=== PATIENT | male | born 1985 | race African-American/Black ===

== ENCOUNTER 2025-03-19 13:28 | Outpatient (CLI) | payer OTHER, SELFPAY | END 2025-03-19 13:29 | disposition home or self-care (01) | PROVIDERS: PCP Internal Medicine; Visit Provider Internal Medicine | DX: Z00.00 Encounter for general adult medical examination without abnormal findings (principal); Z13.228 Encounter for screening for other metabolic disorders; Z13.6 Encounter for screening for cardiovascular disorders | CPT/HCPCS: 80053; 80061 ==

== ENCOUNTER 2025-04-20 10:00 | Outpatient (RCR) | payer OTHER, SELFPAY ==
--- NOTE | 2025-03-25 13:25 | PT.OPE ---
PT [facility] Outpatient Eval PT [facility] Outpatient Eval Start: 03/25/25 09:34 Freq: Status: Active Protocol: Document 03/25/25 09:35 (Rec: 03/25/25 13:08 [id number]) E-signed By Angelica Reece DPT Physical Therapy Outpatient Evaluation Insurance Information Recert Due Date 06/25/25 Insurance Name Other; See Comments Insurance Information/Comments [employer] Medical Diagnosis S39.91 Unspecified injury of abdomen Groin Injury Treating Diagnosis R Hip Pain M25.551 Stiffness of R Hip M25.651 Referring MD Irving Espinoza MD Subjective Subjective Initial subjective: Joseph has been having groin pain for years but has flared up again. 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 GUILLE: He thinks it occurred during basketball 2 years ago. 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 -Hip Ext:?Right= decreased compared to left -Hip Flx:?normal, painful with AROM - HS Length: R= 79 degrees ( lacking 11); L= 83 degrees ( lacking 7) FADER: R= positive Strength LE Strength (R/L):? -Knee Ext: R: 4+/5, L: 5/5, pain noted on R -Knee Flex: R: 4+/5, L: 5/5? -Hip Abd: R: 4+/5, L: 5/5? -Hip Add: R: 3-/5, L: 4+/5, some cramping noted on L, too painful on R to provide resistance -Hip Ext: R: 4/5, L: 4+/5 -Hip Flx: R: 5/5, L: 5/5, some pain noted on R side - Hip IR: 4+/5 R, 5/5 L? - Hip ER: 4+/5 R, 5/5 L? Palpation Long head of quadricep tight/ ropey Proximal adductor and iliopsoas tightness and tenderness Posture R patella higher than L, R medial malleolus higher than L Stork test: stiffness at SI bilaterally R>L Other/Pertinent Objective Hip Labral:? -JOHNNY: - L, + R -FADIR:?- L, + R - Scour: some discomfort on L, no issues on R Muscle Length:? -Abhay Test: Rectus Fem/Psoas /TFL, + on R for pain and tightnesx -Juliet?s Test: R:+ , L:+, greater pelvic rotationR>L -Hamstrin deg from 90 on R, 7 deg from 90 on L LE Strength (R/L):? -Knee Ext: R: 4+/5, L: 5/5, pain noted on R -Knee Flex: R: 4+/5, L: 5/5? -Hip Abd: R: 4+/5, L: 5/5? -Hip Add: R: 3-/5, L: 4+/5, some cramping noted on L, too painful on R to provide resistance -Hip Ext: R: 4/5, L: 4+/5 -Hip Flx: R: 5/5, L: 5/5, some pain noted on R side - Hip IR: 4+/5 R, 5/5 L? - Hip ER: 4+/5 R, 5/5 L? Functional Test Performed & Score LEFS= will give at next visit Assessment Assessment/Impression Patient is a 39 year old male presenting to physical therapy for evaluation and treatment of groin injury. Patient presents with decreased R hip ROM, right hip weakness, impaired SI mobility, and pain . These impairments are limiting the patients ability to run, play basketball, sit for prolonged periods, and exercise. Patient appears motivated to participate in PT and presents with good prognosis to improve mobility, strength, proprioception and return to functional activities with skilled physical therapy intervention. ? Educated patient on proper form and muscle activation throughout session in order to optimize muscle function and proper body mechanics.? Primary Functional Limitations Pain; weakness; impaired flexibility/ROM; inability to run, play basketball, or sit for prolonged periods of time. Plan of Care Rehabilitation Potential Excellent Physical Therapy Goals STG's to be met in 2-3 weeks: 1.) Pt will report pain at 3/ 10 or less at worst. 2.) Pt will be independent and compliant with HEP. 3.) Pt will increase right hip adductor strength to 3+/5 or greater and pain free LTG's to be met in 4-6 weeks: 1.) Pt will report pain at 1/ 10 or less at worst. 2.) Pt will increase R hip strength to 5/5 for all motions and pain free. 3.) Pt will improve bilateral hamstring length by 5 degrees or more. 4.) Pt will be able to resumes sports and exercise activity without pain. Coordination/Communication With Referral Source Frequency/Duration 1-2x/week for 4-6 weeks Patient Will Be Discharged From Therapy Completion of LTG(s),Skills Plateau,Independent w/HEP, Independently Progressing Evaluation Billing Untimed Code Treatment Minutes 30 PT Eval No Charge No Complexity Low Certification Information Initial Certification Date 03/25/25 Ending Certification Date 06/25/25 Provider Signature Required Communication Only-No Signature Required
== END 2025-08-18 23:59 | disposition home or self-care (01) ==
PROVIDERS: PCP Internal Medicine; Visit Provider Internal Medicine
DX: S39.91XD Unspecified injury of abdomen, subsequent encounter (principal); M25.551 Pain in right hip; Z51.89 Encounter for other specified aftercare
CPT/HCPCS: 97110; 97140; 97161

== ENCOUNTER 2025-08-04 06:52 | Emergency (ER) | payer OTHER, SELFPAY ==
--- OUTSIDE RECORDS SUMMARY | 2025-08-04 06:54 | XMS_ITS | Patient Health Record ---
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 Role Phone Verna Hoyt Unavailable Reason For Referral No Information Medications Medication SIG (Take, Route, Fr equency, Duration) Notes Start Date End Date Status Medrol Dosepak 4 mg as directed orally as directed 12/26/2016 Active Problems No Known Problems Plan Of Treatment No Information Insurance Providers Payer Name Payer Address Payer Phone Subscriber Number Group Number Insured Name Patient Relationship to Insured Coverage Start Date Coverage End Date [employer] [address] [place] [address] [id number] Joseph Harvey Self - patient is the insured Medical (General) History Surgical History Surgery Date(Month/Year) Adenoidectomy
[2025-08-04 06:58] VITALS: BP 138/89; PULSE 76; RESP 18; TEMP 36.8; O2SAT 100; BMI 27.5
--- NOTE | 2025-08-04 07:21 | CRLHL7_ITS ---
For Patients: As a result of the Century Cures Act, medical imaging exams and procedure reports are released immediately into your electronic medical record. You may view this report before your referring provider. If you have questions, please contact your health care provider. Indication: Injury Technique: A total of two views of the left tibia and fibula were acquired. Comparison: None Findings: Bones: Alignment is normal. No fractures or bone lesions. Joint spaces: Unremarkable. Soft tissues: Unremarkable. Impression: No acute fracture, dislocation or destructive process.Normal plain film evaluation. Dictated by Young Bravo MD @ 08/04/2025 7:45:16 AM (Electronically Signed)
--- NOTE | 2025-08-04 07:23 | ED_ITS ---
HPI - General Adult General Chief complaint: Extremity Pain/Injury, Lower Stated complaint: L leg injury Time Seen by Provider: 08/04/25 07:13 Source: patient Mode of arrival: ambulatory Limitations: no limitations History of Present Illness HPI narrative: 38-year-old male presents to the emergency department about 25 minutes after an injury to the left calf area while playing basketball. He performed a jump patricia t, landed and then went to take a step and notice significant pain in the lower left calf area. Difficulty flexing the calf. No prior history of similar symptoms. No prior ruptured Achilles. No prior ankle fracture. No history DVT or PE. Not anticoagulated. Last meal was a protein bar around 5:00 a.m. today. No fever or recent illness. No pain in the knee, thigh or opposite leg. Did not try any interventions prior to coming to ED. No for foot pain, cold extremity or numbness. He reports he has tolerated general anesthesia in the past with an uncomplicated appendectomy in 2007. His only home medication is Adderall. No known drug allergies. ROS is notable for the musculoskeletal symptoms as above only, otherwise denies times 12 systems. Related Data Previous Rx's ?Medication ?Instructions ?Recorded dextroamphetamine-amphetamine ER 15 mg PO QAM #30 caps 08/04/25 15 mg 24hr capsule,extend release (Adderall XR) Allergies Allergy/AdvReac Type Severity Reaction Status Date / Time No Known Drug Allergies Allergy Verified 08/04/25 07:02 [facility] Medical History ADHD ?F90.9 - Attention-deficit hyperactivity disorder, unspecified type (ICD-10) Groin injury ?S39.91XA - Unspecified injury of abdomen, initial encounter (ICD-10) Screening due ?Z13.9 - Encounter for screening, unspecified (ICD-10) Social History Smoking Status: Never smoker Do you use any of these nicotine containing products: None Second hand tobacco smoke exposure: No How often do you have a drink containing alcohol: never AUDIT-C Alcohol total score: 0 Non-prescribed substance use: denies use Exam Const: Vital Signs, click to edit/add: Vital Signs - 24 hr 08/04/25 06:58 Temperature 98.2 F Pulse Rate [Pulse Oximeter] 76 Respiratory Rate 18 Blood Pressure [[facility] Upper Arm] 138/89 Pulse Oximetry 100 Oxygen Delivery Me thod Room Air Documenting provider has reviewed patient's vital signs: yes Common normals: no apparent distress General appearance: cooperative and well kempt HENMT: Common normals: normocephalic Head and scalp: normocephalic Face and sinus: normal facial exam Cardio: Other: Regular rate and rhythm when palpated through normal left dorsalis pedis pulse. Normal capillary refill in all toes of left side. Extremity: Other: Right knee and calf appear grossly normal with no defects. Palpation of the right Achilles and ankle area do not reveal any significant deformity or loss of strength. On the left side, the left knee appears normal without any effusion. The left ankle mortise, medial lateral malleolus appear normal without tenderness. The left foot is normal with normal range of motion and movement. The left heel itself is normal but as I palpate up along the Achilles tendon there does not seem to be a full palpable defect but there does seem to be less tension in the left tendon as compared to the right. He certainly can flex and extend the foot but it does cause tenderness up in the calf. He has tenderness to squeezing of the left calf. No pain behind the left knee. Psych: Common normals: speech normal Appearance: well kempt Attitude: engaged Activity/motor behavior: appropriate eye contact Speech: normal speech Insight: insight good Judgement: judgment good Skin: Common normals: no rashes or lesions noted General skin exam: no rashes or lesions noted Course Course ED Course: 40-year-old male with calf pain while playing basketball suspicious for ruptured Achilles. Will start with x-ray of the tibia, including the heel. Consider orthopedic consult. His lungs he is not bearing weight, he does not have pain, will hold off any medications for now. Have advised him to remain NPO while we await screening x-ray. Reevaluation(s) Time of Reevaluation #1: 08:00 Reevaluation #1: Updated patient on findings. X-ray looks remarkably normal. Normal Achilles fat pad that is not suggestive of complete tendon rupture. He certainly could have some mild muscular tearing based on his symptoms but I do not think there is complete rupture. Will place in Cam walker boot, give crutches. Counseled on Tylenol and ibuprofen. Orthopedic follow-up next week to ensure that things are healing properly, advanced imaging if not. Typical alarm symptoms and warnings reviewed. Patient verbalizes understanding and agreement. Vital Signs Vital signs: Initial Vital Signs Temperature 98.2 F 08/04/25 06:58 Temperature Source Temporal Artery Scan 08/04/25 06:58 Pulse Rate 76 08/04/25 06:58 Pulse Rhythm Regular 08/04/25 06:58 Pulse Strength 3+ Normal 08/04/25 06:58 Respiratory Rate 18 08/04/25 06:58 Blood Pressure 138/89 08/04/25 06:58 Blood Pressure Mean 105 08/04/25 06:58 Blood Pressure Position Supine 08/04/25 06:58 Pulse Oximetry 100 08/04/25 06:58 Oxygen Delivery Method Room Air 08/04/25 06:58 Vital Signs Temperature 98.2 F 08/04/25 06:58 Pulse Rate 76 08/04/25 06:58 Respiratory Rate 18 08/04/25 06:58 Blood Pressure 138/89 08/04/25 06:58 Pulse Oximetry 100 08/04/25 06:58 Oxygen Delivery Method Room Air 08/04/25 06:58 Temperature 98.2 F 08/04/25 06:58 Pulse Rate 76 08/04/25 06:58 Respiratory Rate 18 08/04/25 06:58 Blood Pressure 138/89 08/04/25 06:58 Pulse Oximetry 100 08/04/25 06:58 Oxygen Delivery Method Room Air 08/04/25 06:58 Medical Decision Making Imaging Data X-ray left tibia: Attestation: I have reviewed the pertinent imaging results. My impression: Achilles fat pad appears intact most importantly. There does not seem to be evidence of complete tendon rupture. No severe soft tissue swelling to suggest other severe injury. The bones, ankle mortise, knee all look intact. Radiologist's impression: Impression: No acute fracture, dislocation or destructive process.Normal plain film evaluation. Dictated by Young Bravo MD @ 08/04/2025 7:45:16 AM Discharge Plan Discharge Clinical Impression: Injury of calf Patient Disposition: Home, Self-Care Condition: Stable Instructions: Leg Sprain (ED) Additional Instructions: Sorry that the enclosed instructions are not very specific for your type of injury. As we discussed, the x-ray does not show any signs of an Achilles tendon rupture which is great. I do still think that you probably have some tearing of the calf muscle but it certainly is not complete since you are able to flex and extend the leg. It is important that this is immobilized but things should heal given enough time. Please wear the cam walker boot as much as possible. You may remove it to sleep and to briefly shower carefully. Please make a follow-up appointment with our orthopedic team next week. The number is [phone]. For pain, I recommend Tylenol 1000 mg every 6 hours and or ibuprofen 600 mg every 6 hours. If you have difficulty with sleep, you may also use Benadryl or melatonin to help you rest. No athletic activities until cleared by Orthopedics with the lower leg. You may do some gentle upper body exercises as long as they do not require stabilization or balance from the legs. If you have any sudden neurological changes, severe increases in pain or other new movement deficits associated with this, please have the leg re-evaluated. Use the crutches for the next few days, weaning off if the pain improves. If the pain is still very bothersome, continue use of the crutches until you are evaluated by orthopedics. Activity Level: Light activity Discharge Diet: Regular Prescriptions: No Action dextroamphetamine-amphetamine [Adderall XR] 15 mg capsule,extended release 24hr 15 mg PO QAM Qty: 30 0RF Follow Up/Referrals: Irving Espinoza MD [Primary Care Provider, Internal Medicine] Stand Alone Forms: [employer] Info Instructions
== END 2025-08-04 08:30 | disposition home or self-care (01) ==
PROVIDERS: Emergency Provider Family Medicine; PCP Internal Medicine
DX: M79.662 Pain in left lower leg (principal); Y93.67 Activity, basketball
CPT/HCPCS: 73590; 99283

== ENCOUNTER 2025-09-07 13:31 | Outpatient (CLI) | payer OTHER, SELFPAY ==
--- NOTE | 2025-09-07 13:45 | MR_ITS ---
[address] [address] Phone:?[phone] Fax:?[phone] Referring Physician Information: NAWAF Rubi [address] [facility] [address] Phone:?[phone] Fax:?[phone] Patient:Tiesha Wilson D.O.B:?1985 Sex:?Male Phone:? [facility] MRN:?[id number] Exam Date:?09/07/2025 EXAM: MRI of the LEFT ANKLE CLINICAL HISTORY: Ongoing left ankle pain. Evaluate Achilles injury. COMPARISONS: Plain radiographs 08/04/2025. TECHNICAL: MRI sequences of the left ankle: Axials: PD, T2FS Coronals: PD, T2FS Sagittals: PD, T2, STIR Axial oblique: PDFS Sedation: None Contrast: None FINDINGS: Joints and osseous structures: No fracture, subluxation, dislocation, tarsal coalition, or talar dome osteochondral lesion. Ligaments: Syndesmotic: The anterior inferior tibiofibular, posterior inferior tibiofibular, and inferior transverse ligaments are intact. Anterior talofibular: Irregularity, attenuation, and ill-definition of and a small ossification within the anterior talofibular ligament. Calcaneofibular: Irregularity. Posterior talofibular: Intact. Deltoid: 10 x 10 x 6 mm ossification within the deep layer of the deltoid ligament. Spring: Unremarkable. Sinus tarsi: Intact lateral cervical and medial interosseous ligaments. Bifurcate: Unremarkable lateral calcaneonavicular and medial calcaneocuboid ligaments. Calcaneocuboid: Unremarkable medial, dorsolateral and plantar ligaments. Lisfranc ligament complex: Not completely covered in the [id number] of this study. Flexor tendons: Posterior tibial: Intact. Flexor digitorum longus: Intact. Flexor hallucis longus: Intact. Peroneal tendons: Moderate peroneus brevis tendinopathy between the distal fibular tip and calcaneal peroneal tubercle. Mild peroneal tenosynovitis. The peroneus longus tendon is intact. Peroneus quartus muscle. No lateral subluxation. Extensor tendons: Tibialis anterior: Intact. Extensor hallucis longus: Intact. Extensor digitorum longus: Intact. Achilles tendon: Ill-defined high-grade intrasubstance partial tearing within the proximal portion of the Achilles tendon measuring at least 5.0 cm in length, involving greater than 50% of the tendon thickness, and extending proximal to the [id number] of this study. Marked underlying diffuse Achilles tendinopathy. There is edema-like signal within a José deformity. Plantar aponeurosis: Unremarkable. Sinus Tarsi:?The sinus tarsi fat is intact. Tarsal tunnel: Unremarkable. IMPRESSION: 1. Ill-defined high-grade intrasubstance partial tearing within the proximal portion of the Achilles tendon measuring at least 5.0 cm in length, involving greater than 50% of the tendon thickness, and extending proximal to the [id number] of this study. Marked underlying diffuse Achilles tendinopathy. MRI of the left leg is recommended to evaluate the full extent of pathology if clinically appropriate. 2. Edema-like signal within a José deformity; correlate with any point tenderness and clinical signs/symptoms. 3. Irregularity, attenuation, and ill-definition of and a small ossification within the anterior talofibular ligament are findings consistent with sequelae of chronic tear injury. Irregularity of the calcaneofibular ligament is consistent with sequela of chronic sprain injury. 4. Moderate peroneus brevis tendinopathy between the distal fibular tip and calcaneal peroneal tubercle. Mild peroneal tenosynovitis.. Peroneus quartus muscle, an anatomic variant accessory muscle. 5. A 10 x 10 x 6 mm ossification within the deep layer of the deltoid ligament is consistent with sequela of chronic sprain injury. 6. No talar dome osteochondral lesion of the left ankle. RCB Electronically signed on 09/08/2025 10:12:00 AM by Lew Alvarez M.D.
== END 2025-09-07 13:32 | disposition home or self-care (01) ==
PROVIDERS: PCP Internal Medicine; Visit Provider Physician Assistant Surgical
DX: M25.572 Pain in left ankle and joints of left foot (principal); S86.012A Strain of left Achilles tendon, initial encounter; S93.422S Sprain of deltoid ligament of left ankle, sequela; S99.912A Unspecified injury of left ankle, initial encounter
CPT/HCPCS: 73721